=== PATIENT | female | born 1990 | race Hispanic/Latino ===

== ENCOUNTER 2017-02-01 09:57 | Emergency (ER) | payer MEDICAID, OTHER ==
[2017-02-01 09:58] VITALS: BMI 30.1
[2017-02-01 10:11] VITALS: PULSE 60; TEMP 98.6; O2SAT 100
[2017-02-01] MEDS ORDERED: DiphenhydrAMINE 50 mg/ml Inj IVP STA (10:26)
[2017-02-01] MEDS ORDERED: Sodium Chloride 0.9% 1,000 ML IV STA (10:26)
--- NOTE | 2017-02-01 10:26 | ED PDOC ---
Arrival/HPI - General Chief Complaint: Headache Time Seen by Provider: 02/01/17 10:20 Historian: Patient - History of Present Illness Narrative History of Present Illness (Text): 02/01/17 10:20 27 y/o female, pmh including chronic migraine, nkda, c/o on and off migraine x 2 weeks. Pt. stated that she has chronic his of migraine headaches, started again about 2 weeks ago, on and off, unilateral on the lt. side, throbbing, aggravated by bright light and loud sound, relief the exedrin, slowly onset, feels nauseous but no vomiting, no chest pain or shortness of breath, no dizziness, no palpitation, no night sweat, no change in vision, no rash, no numbness or tingling, no other medical or psychological complaints. Past Medical History - Provider Review Nursing Documentation Reviewed: Yes - Past History Past History: No Previous - Infectious Disease Hx of Infectious Diseases: None - Tetanus Immunization Tetanus Immunization: Unknown - Past Medical History Past Medical History: Non-Contributing - Neurological Hx Neurological Disorder: Yes Hx Meningitis: Yes - Psychiatric Hx Substance Use: No - Anesthesia Hx Anesthesia: No - Suicidal Assessment Feels Threatened In Home Enviroment: No Family/Social History - Physician Review Nursing Documentation Reviewed: Yes Family/Social History: Unknown Family HX Smoking Status: Never Smoked Hx Alcohol Use: No Hx Substance Use: No Allergies/Home Meds Allergies/Adverse Reactions: Allergies No Known Allergies Allergy (Verified 02/01/17 10:07) Home Medications: Home Meds Medication Instructions Recorded Confirmed Aspirin/Acetaminophen/Caffeine 1 tab PO PRN PRN 02/01/17 02/01/17 [Excedrin Migraine Caplet] Review of Systems - Review of Systems Constitutional: absent: Fatigue, Fevers Eyes: absent: Vision Changes ENT: absent: Hearing Changes Respiratory: absent: SOB, Cough Cardiovascular: absent: Chest Pain Gastrointestinal: Nausea. absent: Abdominal Pain, Diarrhea, Vomiting Neurological: Headache. absent: Dizziness, Focal Weakness, Gait Changes, Speech Changes, Facial Droop, Disequilibrium, Seizure Physical Exam Vital Signs Reviewed: Yes Vital Signs Temp Pulse Resp BP Pulse Ox 02/01/17 10:09 98.6 F 60 19 119/80 100 Temperature: Afebrile Blood Pressure: Normal Pulse: Regular Respiratory Rate: Normal Appearance: Positive for: Well-Appearing, Non-Toxic, Comfortable Pain Distress: Moderate Mental Status: Positive for: Alert and Oriented X 3 - Systems Exam Head: Present: Atraumatic, Normocephalic, Other (no temporal artery tenderness, no jaw claudication, no facial sinus tenderness). No: Tenderness, Contusion, Swelling, Ecchymosis, Abrasion, Laceration Pupils: Present: PERRL Extroacular Muscles: Present: EOMI Conjunctiva: Present: Normal Ears: Present: NORMAL TM, Normal Canal. No: Erythema Mouth: Present: Moist Mucous Membranes Pharnyx: No: ERYTHEMA, EXUDATE, TONSILS ENLARGED, Muffled/Hoarse Voice Neck: Present: Normal Range of Motion, Paraspinal Tenderness (mild left paraspinal tenderness. ), Trachea Midline. No: Meningeal Signs, MIDLINE TENDERNESS, Lymphadenopathy Respiratory/Chest: Present: Clear to Auscultation, Good Air Exchange. No: Respiratory Distress, Accessory Muscle Use Cardiovascular: Present: Regular Rate and Rhythm, Normal S1, S2. No: Murmurs Abdomen: Present: Normal Bowel Sounds. No: Tenderness, Distention, Peritoneal Signs Back: Present: Normal Inspection Upper Extremity: Present: Normal Inspection. No: Cyanosis, Edema Lower Extremity: Present: Normal Inspection. No: Edema Neurological: Present: GCS=15, CN II-XII Intact, Speech Normal, Motor Func Grossly Intact, Gait Normal, Memory Normal, Other (Negative HINTS, no drifts. ) Skin: Present: Warm, Dry, Normal Color. No: Rashes Psychiatric: Present: Alert, Oriented x 3, Normal Insight, Normal Concentration Medical Decision Making ED Course and Treatment: 02/01/17 10:30 -urine hcg -IVF/reglan/toradol/benadryl -Observe and reassess 02/01/17 12:13 -Urine hcg negative -Headache/neurological signs and symptoms resolved, no neurological deficits, pt. request to be discharged home. -Discharge home with naproxen, zofran, stay hydrated, bed rest, follow up with your own pmd within 2 days return to the ER for any new or worsening signs or symptoms. - Medication Orders Current Medication Orders: Discontinued Medications Diphenhydramine HCl (Benadryl) 50 mg IVP STAT STA Stop: 02/01/17 10:27 Last Admin: 02/01/17 11:28 Dose: 50 mg Sodium Chloride (Sodium Chloride 0.9%) 1,000 mls @ 999 mls/hr IV .Q1H1M STA Stop: 02/01/17 11:26 Last Admin: 02/01/17 11:28 Dose: 999 mls/hr Ketorolac Tromethamine (Toradol) 30 mg IVP STAT STA Stop: 02/01/17 10:27 Last Admin: 02/01/17 11:28 Dose: 30 mg Metoclopramide HCl (Reglan) 10 mg IVP STAT STA Stop: 02/01/17 10:27 Last Admin: 02/01/17 11:28 Dose: 10 mg - PA / [employer] PRODUCTION MANAGER / Resident Statement / has reviewed & agrees with the documentation as recorded. Disposition/Present on Arrival - Present on Arrival Any Indicators Present on Arrival: No History of DVT/PE: No History of Uncontrolled Diabetes: No Urinary Catheter: No History of Decub. Ulcer: No History Surgical Site Infection Following: None - Disposition Have Diagnosis and Disposition been Completed?: Yes Diagnosis: Migraine Disposition: HOME/ ROUTINE Disposition Time: 10:30 Patient Plan: Discharge Patient Problems: Current Active Problems Problem Status Onset Migraine Acute Condition: IMPROVED Additional Instructions: -Discharge home with naproxen, zofran, stay hydrated, bed rest, follow up with your own pmd within 2 days return to the ER for any new or worsening signs or symptoms. Prescriptions: Naproxen 500 mg PO BID PRN #20 tab PRN Reason: Other Ondansetron HCl [Zofran] 4 mg PO TID PRN #10 tablet PRN Reason: Other Referrals: PCP,NO [Primary Care Provider] - Follow up with primary David Trinh MD [Staff Provider] - Follow up with primary Forms: [employer] (Turkish), WORK NOTE
[2017-02-01 12:39] VITALS: BP 121/71; RESP 18
== END 2017-02-01 12:40 | disposition home or self-care (01) ==
LOC: ED 09:57
DX: G43.909 Migraine, unspecified, not intractable, without status migrainosus (principal)
CPT/HCPCS: 96374; 96375; 99285; J1200; J1885; J2765; J7040

== ENCOUNTER 2017-04-13 13:19 | Emergency (ER) | payer MEDICAID, OTHER ==
[2017-04-13 13:20] VITALS: BMI 30.1
--- NOTE | 2017-04-13 14:04 | ED PDOC ---
Arrival/HPI <Jarad Vines - Last Filed: 04/13/17 16:07> <Danny Almaguer - Last Filed: 04/13/17 16:38> - General Chief Complaint: Female Genitourinary Time Seen by Provider: 04/13/17 13:42 - History of Present Illness Narrative History of Present Illness (Text): CC: Vaginal Bleeding This patient is a 27yo F w/ no PMhx also does not go to the doctor for preventative health screenings, no insurance, who is coming in for intermittent vaginal bleeding. Patient states that her LMP was Oct 7, was extremely light for her, and only lasted 2 days and only changed 2 pads for the entire "period" . Patient states she is sexually active with one partner, male only, and states they are in a monogmous relationship for many years. , 1 female, no history of miscarriage. PMhx: denies famhx: denies allergies: denies Meds: none surgeries: Denies Social: denies current/past smoking, denies EtOH use, lives at home, independent in all IADL and ADL (Jarad Vines) Past Medical History - Provider Review Nursing Documentation Reviewed: Yes - Travel History Have you recently traveled outside [place] w/in the past 3 mons?: No - Past History Past History: No Previous - Infectious Disease Hx of Infectious Diseases: None - Tetanus Immunization Tetanus Immunization: Unknown - Past Medical History Past Medical History: Non-Contributing - Neurological Hx Neurological Disorder: Yes Hx Meningitis: Yes - Psychiatric Hx Substance Use: No - Anesthesia Hx Anesthesia: No - Suicidal Assessment Feels Threatened In Home Enviroment: No <Jarad Vines - Last Filed: 04/13/17 16:07> Family/Social History - Physician Review Nursing Documentation Reviewed: Yes Family/Social History: No Known Family HX Smoking Status: Never Smoked Hx Alcohol Use: No Hx Substance Use: No <Jarad Vines - Last Filed: 04/13/17 16:07> Allergies/Home Meds <Jarad Vines - Last Filed: 04/13/17 16:07> <Danny Almaguer - Last Filed: 04/13/17 16:38> Allergies/Adverse Reactions: Allergies No Known Allergies Allergy (Verified 04/13/17 13:36) Review of Systems - Review of Systems Constitutional: absent: Fatigue Eyes: absent: Vision Changes, Photophobia ENT: absent: Hearing Changes, Tinnitus Respiratory: absent: SOB, Cough Cardiovascular: absent: Chest Pain, Palpitations Gastrointestinal: absent: Abdominal Pain, Stool Changes Genitourinary Female: absent: Dysuria, Frequency Musculoskeletal: absent: Arthralgias, Back Pain Skin: absent: Rash, Pruritis, Skin Lesions Neurological: absent: Headache, Dizziness, Focal Weakness Endocrine: absent: Diaphoresis Hemo/Lymphatic: absent: Adenopathy Psychiatric: absent: Anxiety, Depression <Jarad Vines - Last Filed: 04/13/17 16:07> Physical Exam Vital Signs Reviewed: Yes Temperature: Afebrile Blood Pressure: Normal Pulse: Regular Respiratory Rate: Normal Appearance: Positive for: Well-Appearing, Non-Toxic, Comfortable Pain Distress: None Mental Status: Positive for: Alert and Oriented X 3 - Systems Exam Head: Present: Atraumatic, Normocephalic Pupils: Present: PERRL Extroacular Muscles: Present: EOMI Conjunctiva: Present: Normal Mouth: Present: Moist Mucous Membranes Neck: Present: Normal Range of Motion Respiratory/Chest: Present: Clear to Auscultation, Good Air Exchange. No: Respiratory Distress, Accessory Muscle Use Cardiovascular: Present: Regular Rate and Rhythm, Normal S1, S2. No: Murmurs Abdomen: Present: Normal Bowel Sounds. No: Tenderness, Distention, Peritoneal Signs, Rebound, Guarding, McBurney's Point Tender, Rovsing's Sign Present, Hernias, Feeding Tubes, Ostomy Tubes, Mass/Organomegaly, Scars Rectal: No: Occult Blood, Rectal Tenderness, Gross Blood, Melena, Hemorrhoids Genitourinary/Pelvic Exam: Present: Normal External Genitalia, Vaginal Discharge (white milky consistent with BV; patient is only sexually active with one partner; will send gc/chlam as well patient does not want antibiotics for gc /chl and also does not look like it. ), Cervical os Closed, Other (Temo female nurse Jeannie friend also in room). No: Vaginal Bleeding, Vaginal Lesions , Adenexal Tenderness, Adenexal Mass, Cervical Motion Tendernes, Odor Back: No: CVA Tenderness Upper Extremity: Present: Normal Inspection. No: Cyanosis, Edema Lower Extremity: Present: Normal Inspection. No: Edema, CALF TENDERNESS Neurological: Present: GCS=15, CN II-XII Intact, Speech Normal Skin: Present: Warm Lymphatic: No: Cervical Adenopathy, Axillary Adenopathy, Inguinal Adenopathy Psychiatric: Present: Alert, Oriented x 3, Normal Insight <Jarad Vines - Last Filed: 04/13/17 16:07> Vital Signs Temp Pulse Resp BP Pulse Ox 04/13/17 14:38 98 F 66 19 105/56 L 100 04/13/17 13:33 98.7 F 68 16 123/83 99 Medical Decision Making <Jarad Vines - Last Filed: 04/13/17 16:07> <Danny Almaguer - Last Filed: 04/13/17 16:38> ED Course and Treatment: DDx: vs ectopic vs threatened CBC CMP Type and Screen Transvaginal US Bhcg Quant patient will need OB Referall and PMD; explained that we have these services here for free without insurance at the [facility] dispo and reassess 04/13/17 14:44 UA is negative 04/13/17 15:12 CMP WNL Lipase WNL Pending Type and Screen and US read 04/13/17 15:22 Transvaginal US shows gestational sac w/ HR +, positive intrauterine pending type and screen and beta patient will need to follow up with OBGYN as outpatient; will give contacts; will need to speak to social work about healthcare now that she is 04/13/17 15:37 Quant is 64k 04/13/17 15:57 O+ blood, confirmed from previous as well (Jarad Vines) 04/13/17 16:35 Patient seen and examined with resident - came up with treatment plan together. Cervical os closed per resident exam - sono showing IUP with FH; beta HCG is approx 64K; will be ok for d/c on PNV and antiemetic and f/u OBGYN. (Danny Almaguer ) - Lab Interpretations Lab Results: 04/13/17 14:30 04/13/17 14:30 Lab Results 04/13/17 14:30: Beta HCG, Quant [id number] H 04/13/17 14:30: Sodium 137, Potassium 3.9, Chloride 103, Carbon Dioxide 25, Anion Gap 13, BUN 7, Creatinine 0.6 L, Est GFR ( Amer) > 60, Est GFR (Non -Af Amer) > 60, Random Glucose 81, Calcium 9.7, Total Bilirubin 1.1, AST 21, ALT 30, Alkaline Phosphatase 69, Total Protein 7.6, Albumin 4.7, Globulin 2.9, Albumin/Globulin Ratio 1.6, Lipase 23 04/13/17 14:30: Urine Color Yellow, Urine Appearance Clear, Urine pH 6.0, Ur Specific [place] >= 1.030, Urine Protein Trace H, Urine Glucose (UA) Negative, Urine Ketones 40 H, Urine Blood Negative, Urine Nitrate Negative, Urine Bilirubin Negative, Urine Urobilinogen 1.0 H, Ur Leukocyte Esterase Negative, Urine RBC Negative, Urine WBC 0 - 2, Ur Epithelial Cells 6 - 8, Urine Bacteria Small 04/13/17 14:30: WBC 8.2, RBC 4.23, Hgb 13.3, Hct 38.0, MCV 89.8, MCH 31.4, MCHC 35.0, RDW 12.5, Plt Count 256, MPV 11.6 H 04/13/17 14:30: Blood Type O POSITIVE, Antibody Screen Negative, BBK History Checked Patient has bt - RAD Interpretation Radiology Orders: 04/13/17 13:48 OB TRANSVAGINAL [US] Stat - PA / DAIRY CLERK / Resident Statement DEXTER has reviewed & agrees with the documentation as recorded. DEXTER has examined the patient and agrees with the treatment plan. <Danny Almaguer - Last Filed: 04/13/17 16:38> Disposition/Present on Arrival - Present on Arrival Any Indicators Present on Arrival: Yes History of DVT/PE: No History of Uncontrolled Diabetes: No Urinary Catheter: No History of Decub. Ulcer: No History Surgical Site Infection Following: None - Disposition Have Diagnosis and Disposition been Completed?: Yes Disposition Time: 15:55 Patient Plan: Discharge <Jarad Vines - Last Filed: 04/13/17 16:07> <Danny Almaguer - Last Filed: 04/13/17 16:38> - Disposition Diagnosis: Intrauterine Disposition: HOME/ ROUTINE Patient Problems: Current Active Problems Problem Status Onset Intrauterine Acute Condition: FAIR Discharge Instructions (ExitCare): (ED) Additional Instructions: Please make sure to follow up with the [facility] here at [place] for further preventative care. They can help you set up insurance, and get you an OBGYN that will be affordable. If you have any more vaginal bleeding, abdominal cramps, please come back to the closest Emergency room It was a pleasure treating you. Congratulations. Prescriptions: Ondansetron HCl [Zofran] 4 mg PO Q8H #15 solution Vit Calc,Iron,Folic [ Vitamins] 1 each PO DAILY #30 tablet Referrals: PCP,NO [Primary Care Provider] - [place] up with primary [facility] [place] [facility] [place] - [facility] - Follow up with primary Forms: [employer] (Slovenian)
[2017-04-13 14:39] VITALS: BP 105/56; PULSE 66; RESP 19; TEMP 98; O2SAT 100
[2017-04-13 14:40] LABS: MEAN CELL VOLUME 89.8 fl (80.0-105.0); MEAN CORPUSCULAR HEMOGLOBIN 31.4 pg (25.0-35.0); MEAN PLATELET VOLUME 11.6 fl (7.0-11.0); RED CELL DISTRIBUTION WIDTH 12.5 % (11.5-14.5); URINE BILIRUBIN NEGATIVE (NEGATIVE); URINE BLOOD NEGATIVE (NEGATIVE); URINE GLUCOSE (UA) NEGATIVE (NEGATIVE); URINE KETONE 40 mg/dL (NEGATIVE); URINE LEUKOCYTE ESTERASE NEGATIVE Leu/uL (NEGATIVE); URINE PROTEIN TRACE mg/dL (<30 mg/dL); WHITE BLOOD COUNT 8.2 10^3/ul (4.5-11.0)
[2017-04-13 14:41] LABS: URINE APPEARANCE CLEAR (CLEAR); URINE COLOR YELLOW (YELLOW)
[2017-04-13 14:55] LABS: ALB/GLOB RATIO 1.6 (1.1-1.8); ALKALINE PHOSPHATASE 69 U/L (38-126); ALT/SGPT 30 U/L (7-56); AST/SGOT 21 U/L (14-36); BILIRUBIN,TOTAL 1.1 mg/dL (0.2-1.3); BLOOD UREA NITROGEN 7 mg/dL (7-21); CALCIUM 9.7 mg/dL (8.4-10.5); CARBON DIOXIDE 25 mmol/L (21-33); CHLORIDE 103 mmol/L (98-107); GFR AFRICAN-AMERICAN > 60; GLUCOSE,RANDOM 81 mg/dL (70-110); LIPASE 23 U/L (23-300); POTASSIUM 3.9 mmol/L (3.6-5.0); SODIUM 137 mmol/L (132-148); TOTAL PROTEIN 7.6 g/dL (5.8-8.3)
[2017-04-13 14:56] LABS: URINE BACTERIA SMALL (NEG); URINE RBC NEGATIVE /hpf (0-2); URINE WBC 0 - 2 /hpf (0-6)
--- NOTE | 2017-04-13 15:19 | US ---
vaginal bleeding preg 27-year-old female ; LMP: LMP 01/30/2017 Prior examinations from the current :None TECHNIQUE: Real-time 2D imaging, duplex and color Doppler. FINDINGS: Cardiac activity: Present Rate: 132BPM Measurements: Phil Campbell rump length: 0.46cm Gestational age based on CRL 6 weeks 1 day (5 weeks 6 days to 6 weeks 3 days) Gestational age based on gestational sac measurement 6 weeks 1 day (5 weeks 1 day to 7 weeks 1 day) Gestational age derived from LMP: 10 weeks 3 days BRIANNA based on LMP:11/06/2017 BRIANNA based on biometry: 12/06/2017 Yolk sac present at 0.34 cmUterus: Unremarkable. No Cervical abnormalities: Negative examination for cervical dilatation or effacement. Subchorionic hemorrhage: None ADNEXA: Right: Ovary 2.8 x 2.2 x 3.6 cm. Normal Doppler arterial waveform documented. Left: Ovary 3.4 x 1.6 x 2.6 cm. Normal Doppler arterial waveform documented Fluid in the cul-de-sac: No IMPRESSION:Single intrauterine gestation with cardiac activity whose gestational age by ultrasound parameters is 6 weeks 1 day 0 weeks 3 days.
== END 2017-04-13 16:30 | disposition home or self-care (01) ==
LOC: ED 13:19
DX: O46.91 Antepartum hemorrhage, unspecified, first trimester (principal); Z3A.01 Less than 8 weeks gestation of pregnancy

== ENCOUNTER 2017-09-26 10:24 | Emergency (ER) | payer OTHER ==
[2017-09-26 10:29] VITALS: BMI 29.4
[2017-09-26 10:34] VITALS: RESP 18; TEMP 98.3
--- NOTE | 2017-09-26 10:56 | ED PDOC ---
Arrival/HPI - General Chief Complaint: Headache Time Seen by Provider: 09/26/17 10:55 Historian: Patient - History of Present Illness Narrative History of Present Illness (Text): 09/26/17 10:56 27 y/o female, pmh including chronic migraine, nkda, c/o on and off migraine since this morning. Past Medical History - Past History Past History: No Previous - Infectious Disease Hx of Infectious Diseases: None - Tetanus Immunization Tetanus Immunization: Unknown - Past Medical History Past Medical History: Non-Contributing - Cardiac Hx Cardiac Disorders: No - Pulmonary Hx Respiratory Disorders: No - Neurological Hx Neurological Disorder: Yes Hx Headaches: Yes Hx Migraine: Yes - HEENT Hx HEENT Disorder: No - Renal Hx Renal Disorder: No - Endocrine/Metabolic Hx Endocrine Disorders: No - Hematological/Oncological Hx Blood Disorders: No - Integumentary Hx Dermatological Disorder: No - Musculoskeletal/Rheumatological Hx Musculoskeletal Disorders: No - Gastrointestinal Hx Gastrointestinal Disorders: No - Genitourinary/Gynecological Hx Genitourinary Disorders: No - Psychiatric Hx Psychophysiologic Disorder: No Hx Substance Use: No - Anesthesia Hx Anesthesia: No - Suicidal Assessment Feels Threatened In Home Enviroment: No Family/Social History Smoking Status: Never Smoked Hx Alcohol Use: No Hx Substance Use: No Allergies/Home Meds Allergies/Adverse Reactions: Allergies No Known Allergies Allergy (Verified 04/13/17 13:36) Physical Exam Vital Signs Temp Pulse Resp BP Pulse Ox 09/26/17 11:53 71 18 135/76 100 09/26/17 10:33 98.3 F 64 18 117/75 99 Medical Decision Making ED Course and Treatment: 09/26/17 12:53 Re-evaluation. Patient feels better. Discussed results and plan with patient who expresses understanding. All questions answered and there is agreement with the plan to discharge home with instructions. Patient stable for discharge. Return if symptoms persist or worsen Re-evaluation Time: 12:53 Reassessment Condition: Re-examined, Improved - Medication Orders Current Medication Orders: Discontinued Medications Diphenhydramine HCl (Benadryl) 25 mg IVP STAT STA Stop: 09/26/17 11:07 Last Admin: 09/26/17 11:38 Dose: 25 mg IVP Administration Document 09/26/17 11:38 OCS (Rec: 09/26/17 11:39 OCS [id number]) Charges for Administration # of IVP Administrations 1 Sodium Chloride (Sodium Chloride 0.9%) 500 mls @ 999 mls/hr IV .Q31M STA Stop: 09/26/17 11:37 Last Admin: 09/26/17 11:39 Dose: 999 mls/hr eMAR Start Stop Document 09/26/17 11:39 OCS (Rec: 09/26/17 11:41 OCS [id number]) Intravenous Solution Start Date 09/26/17 Start Time 11:39 End Date 09/26/17 End time 12:09 Total Infusion Time 30 Ketorolac Tromethamine (Toradol) 15 mg IVP STAT STA Stop: 09/26/17 11:07 Last Admin: 09/26/17 11:38 Dose: 15 mg MAR Pain Assessment Document 09/26/17 11:38 OCS (Rec: 09/26/17 11:38 OCS [id number]) Pain Reassessment Is this a pain reassessment? Yes Sleep Is patient sleeping during reassessment? No Presence of Pain Presence of Pain Yes Pain Scale Used Pain Scale Used Numeric Location Pain Location Body Bleacher Lard Description Description Constant Intensity of Pain at present 10 Pain Behavior Irritability Rubbing Site Facial Grimacing Aggravating Factors ADL's IVP Administration Document 09/26/17 11:38 OCS (Rec: 09/26/17 11:38 OCS [id number]) Charges for Administration # of IVP Administrations 1 Metoclopramide HCl (Reglan) 10 mg IVP STAT STA Stop: 09/26/17 11:07 Last Admin: 09/26/17 11:39 Dose: 10 mg IVP Administration Document 09/26/17 11:39 OCS (Rec: 09/26/17 11:39 OCS [id number]) Charges for Administration # of IVP Administrations 1 Disposition/Present on Arrival - Present on Arrival Any Indicators Present on Arrival: No History of DVT/PE: No History of Uncontrolled Diabetes: No Urinary Catheter: No History of Decub. Ulcer: No History Surgical Site Infection Following: None - Disposition Have Diagnosis and Disposition been Completed?: Yes Diagnosis: Migraine Disposition: HOME/ ROUTINE Disposition Time: 12:53 Patient Plan: Discharge Condition: GOOD Discharge Instructions (ExitCare): Headache, Adult Additional Instructions: Call private doctor for follow up visit in 1-2 days. Take medication as instructed. Return to emergency if symptoms worsen. Prescriptions: Acetaminophen/Butalbital/Caf [Fioricet] 1 tab PO Q4H PRN #12 tab PRN Reason: Headache Famotidine [Pepcid] 40 mg PO DAILY #10 tablet Naproxen 500 mg PO BID PRN #14 tab PRN Reason: Pain, Severe (8-10) Referrals: Chaz Sneed, [Primary Care Provider] - Follow up with primary [facility] [Outside] - Follow up with primary [facility] [Outside] - Follow up with primary Forms: [employer] (Andorran)
[2017-09-26] MEDS ORDERED: DiphenhydrAMINE 50 mg/ml Inj IVP STA (11:06)
[2017-09-26] MEDS ORDERED: Sodium Chloride 0.9% 500 ML IV STA (11:07)
[2017-09-26 13:17] VITALS: BP 121/69; PULSE 77; O2SAT 98
== END 2017-09-26 13:16 | disposition home or self-care (01) ==
LOC: ED 10:24
DX: G43.909 Migraine, unspecified, not intractable, without status migrainosus (principal)
CPT/HCPCS: 81025; 96374; 96375; 99285; J1200; J1885; J2765; J7040

== ENCOUNTER 2017-10-15 23:17 | Emergency (ER) | payer SELFPAY ==
[2017-10-15 23:18] VITALS: BMI 29.4
[2017-10-15 23:43] VITALS: BP 140/75; PULSE 81; RESP 20; TEMP 98.3; O2SAT 98
== END 2017-10-16 00:05 | disposition left against medical advice (07) ==
LOC: ED 23:17
DX: Z02.89 Encounter for other administrative examinations (principal); R10.30 Lower abdominal pain, unspecified